=== PATIENT | female | born 2000 | race American Indian/Alaskan Native ===

== ENCOUNTER 2023-01-26 14:43 | Outpatient (CLI) | payer BC, SELFPAY ==
--- NOTE | 2023-02-01 10:39 | ONC.NURNOTE ---
Addendum entered by Deanna June, RN 02/15/23 14:30: Received message from PCP and went through with Dr. Barron again. Hematology does not need to see patient unless has a clot associated with the elevated d-dimer. Original Note: Received referral from Dr. Park, and information was reviewed with Dr. Barron today. Went through labs from 03/2022 and 01/2023, per Dr. Barron patient does not need to be seen by fuse cutter. Suggestions to PCP were to be sure that patient is up to date on all cancer screenings, continue to check for clots as needed, and could do a CT CAP if wanted to. Hematology does not follow CRP, this would be rheumatology if patient is symptomatic. If something changes in the future, please send referral with specific question that would like answered by hematology. Left message with Letitia to relay to Dr. Park.
== END 2023-01-26 14:44 | disposition home or self-care (01) ==
PROVIDERS: PCP Family Medicine; Visit Provider Family Medicine
DX: Z00.00 Encounter for general adult medical examination without abnormal findings (principal); R79.89 Other specified abnormal findings of blood chemistry; R79.82 Elevated C-reactive protein (CRP); N92.0 Excessive and frequent menstruation with regular cycle; I10 Essential (primary) hypertension
CPT/HCPCS: 80053; 84443; 85379; 86140

== ENCOUNTER 2023-04-10 11:27 | Outpatient (CLI) | payer BC, SELFPAY | END 2023-04-10 11:28 | disposition home or self-care (01) | PROVIDERS: PCP Family Medicine; Visit Provider Family Medicine | DX: R79.82 Elevated C-reactive protein (CRP) (principal); R79.89 Other specified abnormal findings of blood chemistry | CPT/HCPCS: 84443; 85379; 86140 ==

== ENCOUNTER 2023-07-13 10:55 | Outpatient (CLI) | payer BC, SELFPAY | END 2023-07-13 10:56 | disposition home or self-care (01) | LOC: NFLDREF 07-18 12:46 | PROVIDERS: PCP Family Medicine; Referring Provider Family Medicine; Visit Provider Family Medicine | DX: T37.0X5A Adverse effect of sulfonamides, initial encounter (principal) | CPT/HCPCS: 80053; 80076 ==

== ENCOUNTER 2023-08-03 13:12 | Outpatient (CLI) | payer BC, SELFPAY | END 2023-08-03 13:13 | disposition home or self-care (01) | LOC: NFLDREF 08-23 07:24 | PROVIDERS: PCP Family Medicine; Referring Provider Family Medicine; Visit Provider Family Medicine | DX: D72.12 Drug rash with eosinophilia and systemic symptoms syndrome (principal); T50.905A Adverse effect of unspecified drugs, medicaments and biological substances, initial encounter; R79.89 Other specified abnormal findings of blood chemistry; R79.82 Elevated C-reactive protein (CRP) | CPT/HCPCS: 80053; 85379; 86140 ==

== ENCOUNTER 2023-11-06 10:08 | Outpatient (CLI) | payer BC, SELFPAY | END 2023-11-06 10:09 | disposition home or self-care (01) | PROVIDERS: PCP Family Medicine; Visit Provider Family Medicine | DX: Z31.69 Encounter for other general counseling and advice on procreation (principal) | CPT/HCPCS: 80053; 82166; 82670; 83001; 83002 ==

== ENCOUNTER 2024-05-12 13:03 | Outpatient (CLI) | payer BC, SELFPAY | END 2024-05-12 13:04 | disposition home or self-care (01) | LOC: FRMREF 13:04 | PROVIDERS: PCP Family Medicine; Visit Provider Family Medicine | DX: Z12.4 Encounter for screening for malignant neoplasm of cervix (principal) | CPT/HCPCS: 87624; 87625; 88141; 88142 ==